=== PATIENT | female | born 1985 | race Caucasian/White ===

== ENCOUNTER → 2017-09-30 07:48 | Outpatient (CLI) | payer BC | END | disposition home or self-care (01) | LOC: D.RAD 07:48 | DX: K21.9 Gastro-esophageal reflux disease without esophagitis (principal); K31.89 Other diseases of stomach and duodenum ==

== ENCOUNTER → 2017-10-06 13:51 | Outpatient (CLI) | payer BC | END | disposition home or self-care (01) | LOC: D.CT 10-05 10:30 | DX: K21.9 Gastro-esophageal reflux disease without esophagitis (principal); K31.89 Other diseases of stomach and duodenum ==

== ENCOUNTER 2017-10-27 10:07 | Outpatient (CLI) | payer BC | END 2017-10-27 11:50 | LOC: D.OPS 10:07 | DX: K21.9 Gastro-esophageal reflux disease without esophagitis (principal); Z01.812 Encounter for preprocedural laboratory examination ==

== ENCOUNTER → 2019-01-24 08:54 | Outpatient (CLI) | payer BC | END | disposition home or self-care (01) | LOC: D.RAD 08:54 | PROVIDERS: ATTEND Allergy & Immunology | DX: J32.9 Chronic sinusitis, unspecified (principal) ==